=== PATIENT | female | born 1955 | race Caucasian/White ===

== ENCOUNTER → 2020-07-08 | Outpatient (CLI) | payer OTHER ==
[~2020-07-08] MED LIST: ASPI81EC; CYAN500 PO; Eye Drops15 ML OP; FLUC200 PO; HYDACE5 PO; IBUP200; LEVSOD75 PO; MULVITMINF; NAPR550 PO; Percocet 5-3251 EACH PO; Prednisone20 MG PO; VAGINAL CREAM1 EACH MC; VENL75ER; Valium5 MG PO
== END | disposition home or self-care (01) ==
LOC: LAB 11:14 → LAB SHORT 11:14
DX: L57.0 Actinic keratosis (principal)
CPT/HCPCS: 88305